=== PATIENT | male | born 1940 | race Two or more races ===

== ENCOUNTER 2017-08-07 16:44 | Inpatient (IN) | payer BC, MEDICARE ==
[2017-08-07 20:14] LABS: Glucose,Whole Blood 93 mg/dL (75-99)
[2017-08-07] MEDS ORDERED: OXYMETAZOLINE 0.05% NASL SPRAY 1 SPRAY BOTTLE EA NOSTRIL PRN (21:32)
[2017-08-07] MEDS ORDERED: HYDROcodone/APAP 5-325MG 1 EACH TAB PO PRN (21:32)
[2017-08-07] MEDS: ATORVASTATIN 40 MG TAB PO SCH (22:46)
[2017-08-07] MEDS: APIXABAN 5 MG TAB PO SCH (22:46)
[2017-08-07] MEDS: LATANOPROST 0.005% OPHTH DROPS 2.5 ML BTL BOTH EYES SCH (22:47)
[2017-08-07] MEDS: CHOLECALCIFEROL 1,000 UNIT TAB PO SCH (22:47)
[2017-08-07] MEDS: FERROUS SULFATE 325 MG TAB PO SCH (22:48)
[2017-08-07] MEDS: DILTIAZEM CD 120 MG CAP.ER.24H PO SCH (22:48)
[2017-08-07] MEDS: METOPROLOL SUCCINATE (ER) 50 MG TAB.ER.24H PO SCH (22:48)
[2017-08-07] MEDS: metFORMIN 500 MG TAB PO SCH (22:49)
[2017-08-07] MEDS: DOCUSATE 100 MG CAP PO SCH (22:52)
[2017-08-07] MEDS: DORZOLAMIDE-TIMOLOL 2-0.5% DROPS 10 ML BTL BOTH EYES SCH (22:53)
[2017-08-07] MEDS: INSULIN DETEMIR 100 UNIT/ML 10 ML VIAL SQ SCH (23:05)
[2017-08-08 00:56] LABS: Appearance,Urine Clear (Clear); Bilirubin,Urine Negative (Negative); Glucose,Urine (UA) 1+ (Negative); Ketones,Urine Negative (Negative); Leukocyte Esterase,Urine Negative (Negative); Nitrite,Urine Negative (Negative); PH, Urine 6.5 (5.0-8.0); Protein,Urine Negative (Negative); Specific Gravity,Urine 1.015 (1.001-1.035); UA Billing (MACRO vs. MICRO) CHEM; Urobilinogen,Urine <2.0 mg/dL (<2.0)
[2017-08-08 06:27] LABS: Basophils # (A) 0.1 k/uL (0-0.2); Basophils % (A) 1 %; CH 29.9; CHCM 32.4; Eosinophils # (A) 0.4 k/uL (0-0.7); Eosinophils % (A) 5 %; HCT 33.9 % (39.0-53.0); HDW 2.69; HGB 11.1 gm/dL (13.0-17.5); Luc # (Auto) 0.26; Luc % (Auto) 3; Lymphocytes # (A) 3.1 k/uL (1.0-4.8); Lymphocytes % (A) 40 %; MCH 30.4 pg (25.0-35.0); MCHC 32.7 g/dL (31.0-37.0); MCV 92.8 fL (80.0-100.0); Mean Platelet Volume 7.2; Monocytes # (A) 0.5 k/uL (0-1.0); Monocytes % (A) 7 %; Neutrophils # (A) 3.4 k/uL (1.3-7.7); Neutrophils % (A) 44 %; RBC 3.65 m/uL (4.30-5.90); RDW 13.5 % (11.5-15.5); WBC 7.7 k/uL (3.8-10.6); WBC (Perox) 8.28
[2017-08-08 06:38] LABS: ALT 33 U/L (21-72); AST 18 U/L (17-59); Alkaline Phosphatase 60 U/L (38-126); Anion Gap 11 mmol/L; Blood Urea Nitrogen 19 mg/dL (9-20); Calcium 8.9 mg/dL (8.4-10.2); Carbon Dioxide 20 mmol/L (22-30); Chloride 109 mmol/L (98-107); Cholesterol 111 mg/dL (<200); Glucose 75 mg/dL (74-99); HDL Cholesterol 30 mg/dL (40-60); Non-African American GFR(MDRD) >60 (>60 ml/min/1.73 sqM); Potassium 4.1 mmol/L (3.5-5.1); Sodium 140 mmol/L (137-145); Total Bilirubin 0.3 mg/dL (0.2-1.3)
[2017-08-08] MEDS: metFORMIN 500 MG TAB PO SCH ×2 (07:59→17:32)
[2017-08-08] MEDS: SODIUM CHLORIDE 0.9% 1,000 ML IV SCH ×2 (08:01→11:50)
[2017-08-08 08:28] VITALS: BMI 33.2
[2017-08-08] MEDS ORDERED: NON-FORMULARY DRUG (Liraglutide [Victoza 3-Pak] 1.8 MG) SQ SCH (09:00)
--- NOTE | 2017-08-08 11:11 | US ---
EXAMINATION TYPE: US carotid duplex BILAT DATE OF EXAM: 08/08/2017 COMPARISON: NONE CLINICAL HISTORY: left sided weakness. Possible TIA, on meds for HTN EXAM MEASUREMENTS: RIGHT: Peak Systolic Velocity (PSV) cm/sec ----- Right CCA: 112.4 ----- Right ICA: 83.8 ----- Right ECA: 108.1 ICA/CCA ratio: 0.7 RIGHT: End Diastole cm/sec ----- Right CCA: 15.5 ----- Right ICA: 16.0 ----- Right ECA: 0.0 LEFT: Peak Systolic Velocity (PSV) cm/sec ----- Left CCA: 86.2 ----- Left ICA: 108.1 ----- Left ECA: 219.9 ICA/CCA ratio: 1.3 LEFT: End Diastole cm/sec ----- Left CCA: 12.4 ----- Left ICA: 14.4 ----- Left ECA: 10.9 VERTEBRALS (direction of flow): Right Vertebral: Antegrade Left Vertebral: Antegrade Rhythm: Arrhythmia Bilateral wall thickening. Plaque seen in right mid CCA, left mid CCA and bilateral bulbs. Elevated velocity seen in left ECA. No significant stenosis. Grayscale images show moderate to severe eccentric plaque centered at right carotid bulb but velocity measurements and ratios remain within normal limits in visualized portion of internal carotid artery . There is moderate eccentric hyperechoic plaque at left carotid bulb. Velocity measurements and rati os remain within normal limits. IMPRESSION: Moderate to severe diffuse atherosclerotic change bilaterally without hemodynamically si gnificant stenosis clearly seen in either internal carotid artery.
[2017-08-08] MEDS: DILTIAZEM CD 120 MG CAP.ER.24H PO SCH ×2 (11:49→21:16)
[2017-08-08] MEDS: APIXABAN 5 MG TAB PO SCH ×2 (11:49→21:16)
[2017-08-08] MEDS: DORZOLAMIDE-TIMOLOL 2-0.5% DROPS 10 ML BTL BOTH EYES SCH ×2 (11:49→21:17)
[2017-08-08 11:50] LABS: Glucose,Whole Blood 162 mg/dL (75-99)
--- NOTE | 2017-08-08 12:02 | P.HPIM ---
History of Present Illness 77-year-old gentleman came in with complaints of left-sided weakness and the unsteady gait. Patient does have history of atrial fibrillation patient is already in a statin and the new anticoagulants for atrial fibrillation. MRI was ordered by neurology and patient patient had a carotid Doppler which is negative. On exam patient does have 4 x 5 strength in the left upper arm and 5 x 5 strength in the left lower limb with the abnormal finger-nose testing on the left side patient is a left-handed person unable to write anything because of his instability in the leg left side. Patient had positive Romberg sign and abnormal gait on exam Review of Systems REVIEW OF SYSTEMS: CONSTITUTIONAL: No fever, no malaise, no fatigue. HEENT: No recent visual problems or hearing problems. Denied any sore throat. CARDIOVASCULAR: No chest pain, orthopnea, PND, no palpitations, no syncope. PULMONARY: No shortness of breath, no cough, no hemoptysis. GASTROINTESTINAL: No diarrhea, no nausea, no vomiting, no abdominal pain. Normoactive bowel sounds. NEUROLOGICAL: As described in HPI HEMATOLOGICAL: Denies any bleeding or petechiae. GENITOURINARY: Denies any burning micturition, frequency, or urgency. MUSCULOSKELETAL/RHEUMATOLOGICAL: Denies any joint pain, swelling, or any muscle pain. ENDOCRINE: Denies any polyuria or polydipsia. The rest of the 14-point review of systems is negative. Past Medical History Past Medical History: Atrial Fibrillation, Coronary Artery Disease (CAD), Heart Failure, Diabetes Mellitus, Eye Disorder, Hypertension, Rheumatoid Arthritis ([place] ) History of Any Multi-Drug Resistant Organisms: None Reported Past Surgical History: Appendectomy, Back Surgery, Coronary Bypass/CABG, Heart Catheterization, Orthopedic Surgery Additional Past Surgical History / Comment(s): CERVICAL DISC REMOVED 1971 [facility] 4 V[facility]SEL [facility] RIGHT EYE SINUS INFECTION PT HAD SURGERY PER PT Past Anesthesia/Blood Transfusion Reactions: No Reported Reaction Smoking Status: Former smoker - Past Family History Father Family Medical History: Myocardial Infarction ([place]) Medications and Allergies Home Medications Medication Instructions Recorded Confirmed Type Abatacept/Maltose [Orencia] 750 mg IVPB Q30D 08/07/17 08/07/17 History Apixaban [Eliquis] 5 mg PO BID 08/07/17 08/07/17 History Atorvastatin [Lipitor] 40 mg PO HS 08/07/17 08/07/17 History Cholecalciferol [Vitamin D3] 1,000 unit PO HS 08/07/17 08/07/17 History Diltiazem HCl [Diltiazem 12Hr ER] 120 mg PO BID 08/07/17 08/07/17 History Docusate [Colace] 200 mg PO HS 08/07/17 08/07/17 History Dorzolamide-Timolol 2%/0.5% 1 drop BOTH EYES BID 08/07/17 08/07/17 History [dorzolamide-Timolol 2%/0.5%] Ferrous Sulfate [Feosol] 325 mg PO HS 08/07/17 08/07/17 History Ginkgo Biloba 500 mg PO HS 08/07/17 08/07/17 History HYDROcodone/APAP 5-325MG [[place] 1 tab PO Q6HR PRN 08/07/17 08/07/17 History 5-325] Insulin Detemir [Levemir Flextouch] 40 units SQ HS 08/07/17 08/07/17 History Latanoprost [Xalatan 0.005%] 1 drop BOTH EYES HS 08/07/17 08/07/17 History Liraglutide [Victoza 3-Vic] 1.8 mg SQ DAILY 08/07/17 08/07/17 History Losartan Potassium 100 mg PO HS 08/07/17 08/07/17 History Metoprolol Succinate [Toprol XL] 50 mg PO HS 08/07/17 08/07/17 History [place]-3 Fatty Acids/Fish Oil [Fish 1 cap PO HS 08/07/17 08/07/17 History Oil 1,000 mg Softgel] Oxymetazoline 0.05% Nasl [place] 2 spray EA NOSTRIL BID PRN 08/07/17 08/07/17 History [Afrin 0.05% Nasal [place]] metFORMIN HCL 1,000 mg PO BID 08/07/17 08/07/17 History Allergies Allergy/AdvReac Type Severity Reaction Status Date / Time No Known Allergies Allergy Verified 08/07/17 20:11 Physical Exam Vitals: Vital Signs Temp Pulse Resp BP Pulse Ox 08/08/17 08:00 60 18 149/64 96 08/08/17 04:45 76 18 139/70 95 08/08/17 01:00 97 F L 68 18 126/74 95 08/08/17 00:00 79 17 142/72 97 08/07/17 20:04 97.6 F 68 16 126/94 96 Intake and Output 08/07/17 08/08/17 08/08/17 22:59 06:59 14:59 Intake Total 236 Output Total 600 450 Balance -600 -450 236 Intake: Oral 236 Output: Urine 600 450 Other: Voiding Method Urinal # Voids 1 1 Weight 97.522 kg 93.3 kg PHYSICAL EXAMINATION: GENERAL: The patient is alert and oriented x3, not in any acute distress. Well developed, well nourished. HEENT: Pupils are round and equally reacting to light. EOMI. No scleral icterus. No conjunctival pallor. Normocephalic, atraumatic. No pharyngeal erythema. No thyromegaly. CARDIOVASCULAR: S1 and S2 present. No murmurs, rubs, or gallops. PULMONARY: Chest is clear to auscultation, no wheezing or crackles. ABDOMEN: Soft, nontender, nondistended, normoactive bowel sounds. No palpable organomegaly. MUSCULOSKELETAL: No joint swelling or deformity. EXTREMITIES: No cyanosis, clubbing, or pedal edema. NEUROLOGICAL: Discussed in HPI itself no other weakness or sensory deficits were appreciated SKIN: No rashes. Results CBC & Chem 7: 08/08/17 06:07 08/08/17 06:07 Labs: Abnormal Lab Results - Last 24 Hours (Table) 08/08/17 08/08/17 08/08/17 Range/Units 00:34 06:07 06:07 RBC 3.65 L (4.30-5.90) m/uL Hgb 11.1 L (13.0-17.5) gm/dL Hct 33.9 L (39.0-53.0) % Chloride 109 H (98-107) mmol/L Carbon Dioxide 20 L (22-30) mmol/L POC Glucose (mg/dL) (75-99) mg/dL Total Protein 6.0 L (6.3-8.2) g/dL Albumin 3.4 L (3.5-5.0) g/dL HDL Cholesterol 30 L (40-60) mg/dL Urine Glucose (UA) 1+ H (Negative) 08/08/17 Range/Units 11:48 RBC (4.30-5.90) m/uL Hgb (13.0-17.5) gm/dL Hct (39.0-53.0) % Chloride (98-107) mmol/L Carbon Dioxide (22-30) mmol/L POC Glucose (mg/dL) 162 H (75-99) mg/dL Total Protein (6.3-8.2) g/dL Albumin (3.5-5.0) g/dL HDL Cholesterol (40-60) mg/dL Urine Glucose (UA) (Negative) Thrombosis Risk Factor Assmnt - Choose All That Apply Any of the Below Risk Factors Present?: Yes Each Factor Represents 1 point: Obesity (BMI >25) Each Risk Factor Represents 3 Points: Age 75 years or older Each Risk Factor Represents 5 Points: Stroke (< 1 month) Thrombosis Risk Factor Assessment Total Risk Factor Score: 9 Thrombosis Risk Factor Assessment Level: High Risk Assessment and Plan Plan: #1 possible cerebellar stroke involving the left cerebellum: Patient will undergo MRI patient is already on anticoagulation for atrial fibrillation and is also on statin which will be continued. Neurology was consulted. #2 atrial fibrillation: Rate controlled #3 coronary artery disease #4 type 2 diabetes mellitus #5 hypertension #6 rheumatoid arthritis PT and OT evaluation further workup for CVA as mentioned above and neurology to evaluate the patient.
[2017-08-08 13:22] LABS: Hemoglobin A1C 7.3 % (4.2-6.1)
--- NOTE | 2017-08-08 13:37 | ECHOF ---
Referral Reason:left ventricular function MEASUREMENTS -------- HEIGHT: 167.6 cm WEIGHT: 93.0 kg BP: 142/72 RVIDd: 4.3 cm (< 3.3) IVSd: 1.4 cm (0.6 - 1.1) LVIDd: 5.1 cm (3.9 - 5.3) LVPWd: 1.5 cm (0.6 - 1.1) IVSs: 1.8 cm LVIDs: 4.0 cm LVPWs: 2.2 cm LA Diam: 3.9 cm (2.7 - 3.8) LAESV Index (A-L): 42.22 ml/m Ao Diam: 3.9 cm (2.0 - 3.7) AV Cusp: 1.7 cm (1.5 - 2.6) MV EXCURSION: 8.590 mm (> 18.000) MV EF SLOPE: 26 mm/s (70 - 150) EPSS: 1.5 cm MV E Dwight: 1.14 m/s MV DecT: 254 ms MV A [place]: 1.32 m/s MV E/A Ratio: 0.87 AV maxP.99 mmHg AV maxP.99 mmHg AV meanP.71 mmHg RAP: 5.00 mmHg RVSP: 32.12 mmHg FINDINGS -------- Sinus rhythm. This was a technically difficult study with suboptimal apical views. The left ventricular size is normal. There is moderate concentric left ventricular hypertrophy. Overall left ventricular systolic function is normal with, an EF between 55 - 60 %. The right ventricle is severely enlarged. LA is severely dilated >40 ml/m2 The right atrium is normal in size. 1.5mg of Definity was utilized for enhancement of images There is mild to moderate aortic valve sclerosis. There is mild aortic stenosis present. Peak/mean gradient across the Aortic Valve is 17.99mmHg / 8.71mmHg. The mitral valve leaflets are mildly thickened. Moderate mitral annular calcification present. There is trace to mild mitral regurgitation. Mild tricuspid regurgitation present. There is mild pulmonary hypertension. The right ventricular systolic pressure, as measured by Doppler, is 32.12mmHg. The pulmonic valve was not well visualized. The aortic root is dilated measuring 3.9cm. IVC Not well visulized. There is no pericardial effusion. CONCLUSIONS -------- 1. Sinus rhythm. 2. There is mild to moderate aortic valve sclerosis. 3. There is mild aortic stenosis present. 4. Peak/mean gradient across the Aortic Valve is 17.99mmHg / 8.71mmHg. 5. The mitral valve leaflets are mildly thickened. 6. Moderate mitral annular calcification present. 7. There is trace to mild mitral regurgitation. 8. Mild tricuspid regurgitation present. 9. There is mild pulmonary hypertension. 10. The right ventricular systolic pressure, as measured by Doppler, is 32.12mmHg. 11. The pulmonic valve was not well visualized. 12. This was a technically difficult study with suboptimal apical views. 13. The aortic root is dilated measuring 3.9cm. 14. IVC Not well visulized. 15. There is no pericardial effusion. 16. The left ventricular size is normal. 17. There is moderate concentric left ventricular hypertrophy. 18. Overall left ventricular systolic function is normal with, an EF between 55 - 60 %. 19. The right ventricle is severely enlarged. 20. LA is severely dilated >40 ml/m2 21. The right atrium is normal in size. 22. 1.5mg of Definity was utilized for enhancement of images [employer]INTENANCE WORKER: Norma Wagner RDCS
[2017-08-08 14:00] LABS: Glucose,Whole Blood 70 mg/dL (75-99)
[2017-08-08] MEDS ORDERED: LORazepam 2 MG/ML SYRINGE IV ONE (15:24)
--- NOTE | 2017-08-08 16:14 | MR ---
EXAMINATION TYPE: MR brain wo con DATE OF EXAM: 08/08/2017 3:59 PM COMPARISON: NONE HISTORY: Lt arm and leg weakness FINDINGS: The ventricles, basal cisterns and sulci overlying the cerebral convexities are moderately enlarged. There is evidence of mild to moderate periventricular white matter ischemic demyelination. Remote deep white matter insults are also noted. Diffusion-weighted imaging demonstrates increased signal within the right portion of the marcus compati ble with acute vascular insult. No evidence for hemorrhagic transformation. There is no evidence for midline shift or mass effect. Acute intracranial hemorrhage or extra-axial collection is not evident. Moderate pansinusitis greatest involving the frontal lobes. IMPRESSION: 1. Acute edema on the diffusion portion of the study within the right portion of the marcus consistent with acute vascular insult. 2. No evidence for hemorrhagic transformation. 3. Age-related atrophic and chronic small vessel ischemic change.
[2017-08-08 17:06] LABS: Glucose,Whole Blood 135 mg/dL (75-99)
[2017-08-08] MEDS ORDERED: LOSARTAN 50 MG TAB PO SCH (21:00)
[2017-08-08] MEDS: ATORVASTATIN 40 MG TAB PO SCH (21:16)
[2017-08-08] MEDS: CHOLECALCIFEROL 1,000 UNIT TAB PO SCH (21:16)
[2017-08-08] MEDS: DOCUSATE 100 MG CAP PO SCH (21:16)
[2017-08-08] MEDS: METOPROLOL SUCCINATE (ER) 50 MG TAB.ER.24H PO SCH (21:17)
[2017-08-08] MEDS: LATANOPROST 0.005% OPHTH DROPS 2.5 ML BTL BOTH EYES SCH (21:17)
[2017-08-08] MEDS: FERROUS SULFATE 325 MG TAB PO SCH (21:17)
[2017-08-08] MEDS: INSULIN DETEMIR 100 UNIT/ML 10 ML VIAL SQ SCH (21:21)
[2017-08-08 21:30] LABS: Glucose,Whole Blood 142 mg/dL (75-99)
--- NOTE | 2017-08-08 21:53 | P.CNNES ---
History of Present Illness Consult date: 08/08/17 Reason for Consult: Patient being evaluated for acute left-sided weakness and stroke. History of Present Illness: This patient is a 77-year-old right-handed white male was in his usual state of health until yesterday morning. Patient woke up and was going to the bathroom when he noticed he was having difficulty with his sense of balance. He states he was walking as if he was drunk and gait. He also noted heaviness on his left side mostly involving his left arm and leg. His speech was clear and there was no evidence of any aphasia. His friend was concerned as he has not seen the patient in this condition previously. Since his symptoms were not improving the friend decided to take him to [facility]. Patient was seen there and then transferred last night to [facility] for further evaluation. Patient's symptoms of left-sided weakness have persisted. He has not appreciated any improvement. He has several stroke risk factors including history of diabetes mellitus and hypertension. He has been diabetic for over 20 years. He is not aware of his last hemoglobin A1c blood test results. The patient denies any previous history of TIA or stroke. There is no strong family history of stroke. He does have a history of chronic atrial fibrillation for which he has been taking a look was. Is currently on 5 mg twice a day. Due to all these symptoms he was admitted late last night to the hospital. Today he was able to complete day carotid Doppler ultrasound. This reveals evidence of moderate to severe diffuse arteriosclerotic changes bilaterally without significant carotid artery stenosis. The patient also underwent echocardiogram which revealed ejection fraction of 55-60%. As noted the patient has been taking his outlook was on a regular basis at home. He is not aware of his most recent hemoglobin A1c blood test for monitoring of his diabetes mellitus. We will obtain a hemoglobin A1c level tomorrow morning. The patient otherwise seems to be making good progress. He does not have any involvement of his speech. He states that he is able to get up and ambulate in the room but still feels slightly unsteady with his gait. The patient is now admitted and neurology has been consulted for further evaluation and recommendations. Review of Systems Constitutional: Denies chills, Denies fever Eyes: denies blurred vision, denies pain Ears, nose, mouth and throat: Reports as per HPI (This is a), Denies headache, Denies sore throat Cardiovascular: Denies chest pain, Denies shortness of breath Respiratory: Denies cough Gastrointestinal: Reports as per HPI, Denies abdominal pain, Denies diarrhea, Denies nausea, Denies vomiting Musculoskeletal: Denies myalgias Integumentary: Denies as per HPI, Denies pruritus, Denies rash Neurological: Reports change in mentation, Reports confusion, Reports lack of coordination, Reports paresthesias, Reports tingling, Denies numbness, Denies weakness Psychiatric: Denies anxiety, Denies depression Endocrine: Denies fatigue, Denies weight change Past Medical History Past Medical History: Atrial Fibrillation, Coronary Artery Disease (CAD), Heart Failure, Diabetes Mellitus, Eye Disorder, Hypertension, Rheumatoid Arthritis (RA ) History of Any Multi-Drug Resistant Organisms: None Reported Past Surgical History: Appendectomy, Back Surgery, Coronary Bypass/CABG, Heart Catheterization, Orthopedic Surgery Additional Past Surgical History / Comment(s): CERVICAL DISC REMOVED 1971 [facility] 4 V[facility]SEL [facility] RIGHT EYE SINUS INFECTION PT HAD SURGERY PER PT Past Anesthesia/Blood Transfusion Reactions: No Reported Reaction Smoking Status: Former smoker - Past Family History Father Family Medical History: Myocardial Infarction ([place]) Medications and Allergies Home Medications Medication Instructions Recorded Confirmed Type Abatacept/Maltose [Orencia] 750 mg IVPB Q30D 08/07/17 08/07/17 History Apixaban [Eliquis] 5 mg PO BID 08/07/17 08/07/17 History Atorvastatin [Lipitor] 40 mg PO HS 08/07/17 08/07/17 History Cholecalciferol [Vitamin D3] 1,000 unit PO HS 08/07/17 08/07/17 History Diltiazem HCl [Diltiazem 12Hr ER] 120 mg PO BID 08/07/17 08/07/17 History Docusate [Colace] 200 mg PO HS 08/07/17 08/07/17 History Dorzolamide-Timolol 2%/0.5% 1 drop BOTH EYES BID 08/07/17 08/07/17 History [dorzolamide-Timolol 2%/0.5%] Ferrous Sulfate [Feosol] 325 mg PO HS 08/07/17 08/07/17 History Ginkgo Biloba 500 mg PO HS 08/07/17 08/07/17 History HYDROcodone/APAP 5-325MG [[place] 1 tab PO Q6HR PRN 08/07/17 08/07/17 History 5-325] Insulin Detemir [Levemir Flextouch] 40 units SQ HS 08/07/17 08/07/17 History Latanoprost [Xalatan 0.005%] 1 drop BOTH EYES HS 08/07/17 08/07/17 History Liraglutide [Victoza 3-Vic] 1.8 mg SQ DAILY 08/07/17 08/07/17 History Losartan Potassium 100 mg PO HS 08/07/17 08/07/17 History Metoprolol Succinate [Toprol XL] 50 mg PO HS 08/07/17 08/07/17 History [place]-3 Fatty Acids/Fish Oil [Fish 1 cap PO HS 08/07/17 08/07/17 History Oil 1,000 mg Softgel] Oxymetazoline 0.05% Nasl [place] 2 spray EA NOSTRIL BID PRN 08/07/17 08/07/17 History [Afrin 0.05% Nasal [place]] metFORMIN HCL 1,000 mg PO BID 08/07/17 08/07/17 History Allergies Allergy/AdvReac Type Severity Reaction Status Date / Time No Known Allergies Allergy Verified 08/07/17 20:11 Physical Examination - Vital Signs Vital Signs: Vital Signs Temp Pulse Resp BP Pulse Ox 08/08/17 08:00 60 18 149/64 96 08/08/17 04:45 76 18 139/70 95 08/08/17 01:00 97 F L 68 18 126/74 95 08/08/17 00:00 79 17 142/72 97 08/07/17 20:04 97.6 F 68 16 126/94 96 Intake and Output 08/07/17 08/08/17 08/08/17 22:59 06:59 14:59 Intake Total 236 Output Total 600 450 Balance -600 -450 236 Intake: Oral 236 Output: Urine 600 450 Other: Voiding Method Urinal # Voids 1 1 Weight 97.522 kg 93.3 kg - Constitutional General appearance: average body habitus, cooperative - EENT EENT: PERRL, mucous membranes moist - Respiratory Respiratory: lungs clear, normal breath sounds - Cardiovascular Cardiovascular: regular rate, normal S1, normal S2 Extremities: no peripheral edema bilaterally - Gastrointestinal Gastrointestinal: normoactive bowel sounds - Integumentary Integumentary: normal - Neurologic Cranial nerve examination: PERRL, EOMI, V1/V2/V3 grossly intact, face symmetric , tongue midline, intact gag reflex, intact corneal reflex, normal palatal elevation Speech examination: intact Sensorimotor examination: intact Detailed motor examination: grossly full strength in all extremities Motor examination - right side: 4/5: biceps, triceps, wrist flexion, wrist extension, walnut dehydrator operator, hip flexors, knee extensors, dorsiflexion, toe extension (EHL) , plantarflexion Motor examination - left side: 4/5: biceps, triceps, wrist flexion, wrist extension, walnut dehydrator operator, hip flexors, knee extensors, dorsiflexion, toe extension (EHL) , plantarflexion Detailed sensory examination: intact Reflex and gait examination: intact Reflexes: 1+: ankle, bicep, knee, tricep Cerebellar examination: ataxia, dysmetria - Musculoskeletal Musculoskeletal: no pain - Psychiatric Psychiatric: mood/affect appropriate, cooperative Results - Laboratory Findings CBC and BMP: 08/08/17 06:07 08/08/17 06:07 Abnormal Lab Findings: Abnormal Labs 08/08/17 08/08/17 08/08/17 00:34 06:07 06:07 RBC 3.65 L Hgb 11.1 L Hct 33.9 L Chloride 109 H Carbon Dioxide 20 L Total Protein 6.0 L Albumin 3.4 L HDL Cholesterol 30 L Urine Glucose (UA) 1+ H Assessment and Plan (1) Brainstem stroke Status: Acute Code(s): I63.9 - CEREBRAL INFARCTION, UNSPECIFIED (2) Atrial fibrillation Status: Acute Code(s): I48.91 - UNSPECIFIED ATRIAL FIBRILLATION (3) Type 2 diabetes mellitus Status: Acute Code(s): E11.9 - TYPE 2 DIABETES MELLITUS WITHOUT COMPLICATIONS (4) Hx of CABG Status: Acute Code(s): Z95.1 - PRESENCE OF AORTOCORONARY BYPASS GRAFT Plan: This patient is a 77-year-old male was admitted to Hospital with symptoms of acute left-sided weakness and unsteadiness ambulating. He was initially seen at [facility] in the emergency room and then transferred to [facility] for further neurological evaluation and treatment. Patient denies any previous history of TIA or stroke. He underwent a computed tomography scan of the brain which is negative for any acute changes. He underwent a MRI of the brain today which reveals evidence of an acute right pontine infarct. This acute stroke is consistent with his current findings of left-sided weakness. We have recommended a complete stroke evaluation to the patient. He does have a known history of underlying chronic atrial fibrillation for which she has been taking a look was for over 2 years. He should be maintained on L was for long-term anticoagulation. Patient will need tight control of his other stroke risk factors including hypertension, diabetes mellitus, and hyperlipidemia. We will continue close neurological follow-up of this patient during this admission. His overall prognosis at this time remains guarded. Time with Patient: Greater than 30
[2017-08-09] MEDS: SODIUM CHLORIDE 0.9% 1,000 ML IV SCH ×2 (05:49→14:53)
[2017-08-09] MEDS: metFORMIN 500 MG TAB PO SCH (06:26)
[2017-08-09 06:28] LABS: Glucose,Whole Blood 101 mg/dL (75-99)
[2017-08-09] MEDS: DORZOLAMIDE-TIMOLOL 2-0.5% DROPS 10 ML BTL BOTH EYES SCH (06:31)
[2017-08-09] MEDS: APIXABAN 5 MG TAB PO SCH (09:04)
[2017-08-09] MEDS: DILTIAZEM CD 120 MG CAP.ER.24H PO SCH (09:04)
[2017-08-09 09:13] VITALS: RESP 18
[2017-08-09 11:30] VITALS: BP 151/69; PULSE 61; TEMP 97
--- NOTE | 2017-08-09 11:36 | P.DS ---
Providers Date of admission: 08/07/17 19:11 Attending physician: Tamir Das Consults: 08/07/17 21:10 Consult Physician Urgent Consulting Provider: Grace Duran Consult Reason/Comments: TIA Do you want consulting provider notified?: Yes Primary care physician: Stated None Hospital Course: 77-year-old gentleman came in with complaints of left-sided weakness and the unsteady gait. Patient does have history of atrial fibrillation patient is already in a statin and the new anticoagulants for atrial fibrillation. MRI was ordered by neurology and patient patient had a carotid Doppler which is negative. On exam patient does have 4 x 5 strength in the left upper arm and 5 x 5 strength in the left lower limb with the abnormal finger-nose testing on the left side patient is a left-handed person unable to write anything because of his instability in the leg left side. 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 Patient is already on anti- correlation patient will be discharged today on anti-correlation along with statin if cleared by neurology. Patient will need physical therapy as an outpatient are home physical therapy. Patient is requiring walker. GENERAL: The patient is alert and oriented x3, not in any acute distress. Well developed, well nourished. HEENT: Pupils are round and equally reacting to light. EOMI. No scleral icterus. No conjunctival pallor. Normocephalic, atraumatic. No pharyngeal erythema. No thyromegaly. CARDIOVASCULAR: S1 and S2 present. No murmurs, rubs, or gallops. PULMONARY: Chest is clear to auscultation, no wheezing or crackles. ABDOMEN: Soft, nontender, nondistended, normoactive bowel sounds. No palpable organomegaly. MUSCULOSKELETAL: No joint swelling or deformity. EXTREMITIES: No cyanosis, clubbing, or pedal edema. NEUROLOGICAL: Discussed in HPI itself no other weakness or sensory deficits were appreciated SKIN: No rashes. #1 possible cerebellar stroke involving right marcus #2 atrial fibrillation: Rate controlled #3 coronary artery disease #4 type 2 diabetes mellitus #5 hypertension #6 rheumatoid arthritis Plan - Discharge Summary New Discharge Prescriptions: No Action Oxymetazoline 0.05% Nasl [place] [Afrin 0.05% Nasal [place]] 2 spray EA NOSTRIL BID PRN PRN Reason: Allergy Symptoms Insulin Detemir [Levemir Flextouch] 40 units SQ HS Losartan Potassium 100 mg PO HS Ferrous Sulfate [Feosol] 325 mg PO HS Docusate [Colace] 200 mg PO HS Cholecalciferol [Vitamin D3] 1,000 unit PO HS Abatacept/Maltose [Orencia] 750 mg IVPB Q30D metFORMIN HCL 1,000 mg PO BID Metoprolol Succinate [Toprol XL] 50 mg PO HS Latanoprost [Xalatan 0.005%] 1 drop BOTH EYES HS HYDROcodone/APAP 5-325MG [[place] 5-325] 1 tab PO Q6HR PRN PRN Reason: Pain Dorzolamide-Timolol 2%/0.5% [dorzolamide-Timolol 2%/0.5%] 1 drop BOTH EYES BID Apixaban [Eliquis] 5 mg PO BID Diltiazem HCl [Diltiazem 12Hr ER] 120 mg PO BID Atorvastatin [Lipitor] 40 mg PO HS [place]-3 Fatty Acids/Fish Oil [Fish Oil 1,000 mg Softgel] 1 cap PO HS Ginkgo Biloba 500 mg PO HS Liraglutide [Victoza 3-Vic] 1.8 mg SQ DAILY Discharge Medication List Abatacept/Maltose [Orencia] 750 mg IVPB Q30D 08/07/17 [History] Apixaban [Eliquis] 5 mg PO BID 08/07/17 [History] Atorvastatin [Lipitor] 40 mg PO HS 08/07/17 [History] Cholecalciferol [Vitamin D3] 1,000 unit PO HS 08/07/17 [History] Diltiazem HCl [Diltiazem 12Hr ER] 120 mg PO BID 08/07/17 [History] Docusate [Colace] 200 mg PO HS 08/07/17 [History] Dorzolamide-Timolol 2%/0.5% [dorzolamide-Timolol 2%/0.5%] 1 drop BOTH EYES BID 08/07/17 [History] Ferrous Sulfate [Feosol] 325 mg PO HS 08/07/17 [History] Ginkgo Biloba 500 mg PO HS 08/07/17 [History] HYDROcodone/APAP 5-325MG [[place] 5-325] 1 tab PO Q6HR PRN 08/07/17 [History] Insulin Detemir [Levemir Flextouch] 40 units SQ HS 08/07/17 [History] Latanoprost [Xalatan 0.005%] 1 drop BOTH EYES HS 08/07/17 [History] Liraglutide [Victoza 3-Vic] 1.8 mg SQ DAILY 08/07/17 [History] Losartan Potassium 100 mg PO HS 08/07/17 [History] Metoprolol Succinate [Toprol XL] 50 mg PO HS 08/07/17 [History] [place]-3 Fatty Acids/Fish Oil [Fish Oil 1,000 mg Softgel] 1 cap PO HS 08/07/17 [ History] Oxymetazoline 0.05% Nasl [place] [Afrin 0.05% Nasal [place]] 2 spray EA NOSTRIL BID PRN 08/07/17 [History] metFORMIN HCL 1,000 mg PO BID 08/07/17 [History] Patient Instructions/Handouts: Brain Stem Infarction (DC) Discharge Disposition: HOME WITH HOME HEALTH SERVICES
[2017-08-09] MEDS ORDERED: NON-FORMULARY DRUG (Omega-3 Fatty Acids/Fish Oil [Fish Oil 1,000 Mg Softgel] 1 CAP) PO SCH (21:00)
== END 2017-08-09 16:38 | disposition home health service (06) | DRG 66 ==
LOC: 6SEL 19:11
PROVIDERS: ADMIT Internal Medicine; ATTEND Internal Medicine
DX: I63.9 Cerebral infarction, unspecified (principal); I11.0 Hypertensive heart disease with heart failure; I48.91 Unspecified atrial fibrillation; I50.9 Heart failure, unspecified; E11.9 Type 2 diabetes mellitus without complications; I25.10 Atherosclerotic heart disease of native coronary artery without angina pectoris; M06.9 Rheumatoid arthritis, unspecified; E66.9 Obesity, unspecified; Z68.25 Body mass index [BMI] 25.0-25.9, adult; Z79.01 Long term (current) use of anticoagulants; Z79.4 Long term (current) use of insulin; Z79.899 Other long term (current) drug therapy; Z87.891 Personal history of nicotine dependence; Z95.1 Presence of aortocoronary bypass graft; Z82.49 Family history of ischemic heart disease and other diseases of the circulatory system
CPT/HCPCS: 70551; 80053; 80061; 81003; 83036; 85025; 93306; 93880; 95819

== ENCOUNTER → 2019-04-25 | Outpatient (CLI) | payer BC ==
--- NOTE | 2019-04-25 15:07 | MR ---
EXAMINATION TYPE: MR knee LT wo con DATE OF EXAM: 04/25/2019 COMPARISON: None HISTORY: Left knee pain TECHNIQUE: Multiplanar, multisequence imaging of the left knee is performed without IV contrast. FINDINGS: MEDIAL MENISCUS: There is a complex tear of the posterior horn of the medial meniscus extending into the meniscal body and meniscal root. There is associated 2 mm of meniscal extrusion. LATERAL MENISCUS: Anterior and posterior horns are intact without tear. CRUCIATE LIGAMENTS: The anterior and posterior cruciate ligaments are intact however there is increas ed signal in the anterior cruciate ligament indicative of a moderate grade sprain. COLLATERAL LIGAMENTS: The medial collateral ligament and lateral collateral ligament complex are inta ct however there is high signal superficial and deep to the medial collateral ligament suggesting mod erate grade sprain and MCL bursitis. EXTENSOR MECHANISM: Visualized quadriceps and patellar tendons are intact. EFFUSION: Complex joint effusion is seen with plical thickening. Internal complexity to indicate syn ovitis. Overall joint effusion is small. POPLITEAL CYST: There is a complex popliteal cyst containing heterogenous signal. TRICOMPARTMENT SPACES: There is mild medial compartment joint space narrowing and small marginal oste ophytes within all 3 compartments. CARTILAGE: Patellofemoral cartilage is slightly heterogenous but overall unremarkable. There is full- thickness cartilaginous defect of the weightbearing surface of the medial femoral condyle measuring 1 .3 cm and generalized cartilaginous thinning. There is also opposing surface chondral loss within the tibial plateau measuring 1.3 cm. Underlying bone marrow edema is seen of both the medial tibial plat eau and medial femoral condyle. In the lateral compartment there is generalized chondral thinning and heterogeneity with anterior femoral defect measuring 4 mm that is partial thickness. BONE MARROW SIGNAL: There is a large area of abnormal bone marrow signal of the medial tibia extendin g from the medial tibial eminence of the most medial aspect of the tibial plateau and extending from the physis to joint space to the metaphysis. There is a 4 mm stable appearing osteochondral defect of the tibial plateau. More mild focal bone marrow edema is seen of the medial femoral condyle and oppo sing surface. OTHER: There is a 3.2 x 1.7 x 6.1 cm complex fluid collection that is intramuscular within the popli teus muscle. This appears to represent and intramuscular hematoma. The popliteal muscle appears intac t with no discrete tear. There is generalized subcutaneous edema throughout mild generalized atrophy and some more focal incre ased signal of the biceps femoris relating to intramuscular edema. IMPRESSION: 1. Large intramuscular complex fluid collection, presumably a hematoma given the patient's injury, wi thin the popliteus measuring up to 6.1 cm. 2. Complex tear of the posterior horn of the medial meniscus with associated meniscal extrusion and e xtends into the meniscal body. 3. Complex joint effusion indicating synovitis with superior plical thickening. 4. Large area of bone marrow edema within the medial tibial and to a lesser degree within the medial femoral condyle without discrete subchondral fracture. Given the history osseous contusions are of pr imary consideration. There is a 4 mm stable appearing osteochondral defect of the tibial plateau. 5. Moderate grade sprain of the medial collateral ligament and anterior cruciate ligament with superf icial fluid overlying the medial collateral ligament indicative of MCL bursitis. 6. Mild tricompartmental arthropathy and moderate tricompartmental chondrosis with full-thickness car tilaginous defect of the medial compartment. 7. Mild intramuscular edema in the biceps femoris without discrete tearing. 8. Mild diffuse muscular atrophy and subcutaneous edema.
== END | disposition home or self-care (01) ==
LOC: RADMRIMAIN 11:56
PROVIDERS: ATTEND Family Medicine
DX: M17.12 Unilateral primary osteoarthritis, left knee (principal); S83.232A Complex tear of medial meniscus, current injury, left knee, initial encounter; S83.412A Sprain of medial collateral ligament of left knee, initial encounter; S83.512A Sprain of anterior cruciate ligament of left knee, initial encounter; M94.8X5 Other specified disorders of cartilage, thigh; M62.552 Muscle wasting and atrophy, not elsewhere classified, left thigh